=== PATIENT | male | born 1950 | race Caucasian/White ===

== ENCOUNTER 2020-01-05 10:34 | Outpatient (REF) | payer MEDICARE, MEDICAID, SELFPAY ==
[2020-01-05 11:54] LABS: MANUAL DIFF FLAG NO
[2020-01-05 12:04] LABS: Basophils Absolute Auto 0.1 X10*3/uL (0.0-0.2); Basophils Percent Auto 0.4 % (0-2); Eosinophils Absolute Auto 0.3 X10*3/uL (0.0-0.4); Eosinophils Percent Auto 1.3 % (0-4); Hematocrit 29.4 % (42-52); Hemoglobin 9.7 g/dl (14.0-18.0); Imm Gran Abs Auto 0.14 X10*3/uL (0.00-0.03); Imm Gran Pct Auto 0.7 % (0.0-0.4); Lymphocytes Percent Auto 10.4 % (20-40); Mean Corpuscular Hemoglobin 36.6 pg (27.0-33.0); Mean Platelet Volume 9.2 fL (9.4-12.4); Monocytes Percent Auto 5.2 % (2-11); Neutrophils Absolute Auto 16.1 X10*3/uL (2.0-8.3); Platelet Count 401 X10*3/uL (160-400); Red Blood Count 2.65 X10*6/uL (4.60-5.80); Red Cell Distribution Width 13.9 % (11.0-16.0); White Blood Count 19.7 X10*3/uL (4.8-10.8)
[2020-01-05 12:12] LABS: Mean Corpuscular Volume 110.9 fL (80-98)
[2020-01-05 12:16] LABS: Glucose Urine UA NEG (NEG); Leukocyte Esterase Urine 1+ (NEG); Nitrite Urine NEG (NEG); PH 6.5 (5.0-8.0); Specific Gravity - Urine 1.015 (1.005-1.025); Urine Blood 1+ (NEG); Urine Ketones NEG (NEG); Urine Protein 2+ MG/DL (NEG-TRACE)
[2020-01-05 12:24] LABS: Anion Gap 15 (12-20); Blood Urea Nitrogen 35 mg/dL (9-16); Calcium 8.5 mg/dL (8.4-10.2); Carbon Dioxide 21 mmol/L (22-29); Chloride 107 mmol/L (96-108); Estimated Glomerular Filt Rate 15; Magnesium 2.4 mg/dL (1.6-2.6); Phosphorus 4.8 mg/dL (2.7-4.5); Potassium 4.5 mmol/l (3.3-5.1); Sodium 138 mmol/L (135-145)
[2020-01-05 12:27] LABS: Appearance Urine HAZY; Color Urine YELLOW
[2020-01-05 12:45] LABS: Vitamin D 25-OH Total 25.7 ng/mL (>30)
[2020-01-05 13:02] LABS: Renal w Reflex-LAB USE ONLY Order Verified
[2020-01-05 13:03] LABS: Bacteria Urine TRACE /LPF; RBC Urine 0-2 /HPF (0); Squamous Epithelial Cell Urine 1+ /LPF
[2020-01-05 13:09] LABS: Renal w Reflex Lab Use Only Order verified
[2020-01-05 14:44] LABS: Creatinine Urine 39.46 mg/dL; Total Protein Urine Random 146 mg/dL (<12)
[2020-01-06 21:21] LABS: Calcium (PTHI) 8.7 mg/dL (8.6-10.3); PTHI 190 pg/mL (14-64)
== END 2020-01-05 10:35 | disposition home or self-care (01) ==
LOC: HO.LAB 10:34
PROVIDERS: PCP Family Medicine; Visit Provider Internal Medicine Nephrology
DX: R80.9 Proteinuria, unspecified (principal); I12.9 Hypertensive chronic kidney disease with stage 1 through stage 4 chronic kidney disease, or unspecified chronic kidney disease; N18.30 Chronic kidney disease, stage 3 unspecified
CPT/HCPCS: 36415; 80051; 81001; 81003; 82040; 82043; 82306; 82310; 82565; 83735; 83970; 84100; 84156; 84520; 85025; 87086

== ENCOUNTER 2020-03-16 09:25 | Outpatient (REF) | payer MEDICARE, MEDICAID, SELFPAY ==
[2020-03-16 10:18] LABS: MANUAL DIFF FLAG NO
[2020-03-16 10:22] LABS: Basophils Absolute Auto 0.1 X10*3/uL (0.0-0.2); Basophils Percent Auto 0.4 % (0-2); Eosinophils Absolute Auto 0.4 X10*3/uL (0.0-0.4); Eosinophils Percent Auto 3.3 % (0-4); Hematocrit 30.3 % (42-52); Hemoglobin 9.8 g/dl (14.0-18.0); Imm Gran Abs Auto 0.08 X10*3/uL (0.00-0.03); Imm Gran Pct Auto 0.7 % (0.0-0.4); Lymphocytes Absolute Auto 2.3 X10*3/uL (1.2-4.9); Lymphocytes Percent Auto 19.2 % (20-40); Mean Corpuscular HGB Conc 32.3 g/dl (31.0-36.0); Mean Corpuscular Hemoglobin 35.6 pg (27.0-33.0); Mean Platelet Volume 8.9 fL (9.4-12.4); Monocytes Absolute Auto 0.8 X10*3/uL (0.1-1.2); Monocytes Percent Auto 6.5 % (2-11); Neutrophils Absolute Auto 8.5 X10*3/uL (2.0-8.3); Neutrophils Percent Auto 69.9 % (45-73); Platelet Count 371 X10*3/uL (160-400); Red Blood Count 2.75 X10*6/uL (4.60-5.80); Red Cell Distribution Width 13.4 % (11.0-16.0); White Blood Count 12.1 X10*3/uL (4.8-10.8)
[2020-03-16 10:23] LABS: Mean Corpuscular Volume 110.2 fL (80-98)
[2020-03-16 10:36] LABS: Glucose Urine UA NEG (NEG); Leukocyte Esterase Urine 1+ (NEG); Nitrite Urine NEG (NEG); PH 7.5 (5.0-8.0); Urine Blood 1+ (NEG); Urine Ketones NEG (NEG); Urine Protein 2+ MG/DL (NEG-TRACE)
[2020-03-16 10:47] LABS: Appearance Urine HAZY; Color Urine STRAW
[2020-03-16 11:03] LABS: RBC Urine 0-2 /HPF (0); Squamous Epithelial Cell Urine TRACE /LPF
[2020-03-16 11:20] LABS: ~HepC Num1 5.45 S/CO (0.00-0.79); ~Hepatitis C Antibody Reactive (Nonreactive)
[2020-03-16 12:17] LABS: Estimated Glomerular Filt Rate 15
[2020-03-16 13:41] LABS: Alanine Aminotransferase 9 U/L (0-40); Albumin Level 4.1 g/dL (3.5-5.0); Alkaline Phosphatase 122 U/L (39-117); Anion Gap 13 (12-20); Aspartate Amino Transferase 13 U/L (5-37); Bilirubin Total 0.2 mg/dL (0.0-1.0); Blood Urea Nitrogen 36 mg/dL (9-16); Calcium 8.7 mg/dL (8.4-10.2); Carbon Dioxide 24 mmol/L (22-29); Chloride 104 mmol/L (96-108); Cholesterol 199 mg/dL; Glucose Random 90 mg/dL (60-115); HDL Cholesterol 69 mg/dL; LDL Cholesterol Calculated 118 mg/dl; Potassium 4.3 mmol/l (3.3-5.1); Sodium 137 mmol/L (135-145); Total Protein 7.7 g/dL (6.5-8.0); Triglycerides 64 mg/dL
[2020-03-17 04:11] LABS: Syphilis Screen Nonreactive (Nonreactive)
[2020-03-17 12:42] LABS: Absolute CD3 Count 1583 cells/uL (840-3060); Absolute CD4 Count 634 cells/uL (490-1740); Absolute CD8 Count 923 cells/uL (180-1170); Absolute Lymphocytes 2224 cells/uL (850-3900); CD4 CD8 Ratio 0.69 (0.86-5.00); Percent CD3 Cells 71 % (57-85); Percent CD4 Cells 29 % (30-61); Percent CD8 Cells 42 % (12-42)
[2020-03-18 07:03] LABS: C. trachomatis RNA TMA NOT DETECTED (NOT DETECTED); N. gonorrhoeae RNA TMA NOT DETECTED (NOT DETECTED)
[2020-03-18 11:43] LABS: HIV RNA PCR Qn Copies 72 copies/mL (NOT DETECTED); HIV RNA PCR Qn Log Copies 1.86 (NOT DETECTED)
[2020-05-12 12:00] LABS: HCV Log PCR <1.18 NOT DETECTED; HepC Viral Load <15 NOT DETECTED
== END 2020-03-16 09:26 | disposition home or self-care (01) ==
LOC: HO.LAB 09:25
PROVIDERS: Absent Provider Family Medicine; PCP Family Medicine; Visit Provider Internal Medicine Infectious Disease
DX: E78.5 Hyperlipidemia, unspecified (principal); B20 Human immunodeficiency virus [HIV] disease
CPT/HCPCS: 36415; 80053; 80061; 81001; 85025; 85060; 86359; 86360; 86481; 86780; 86803; 87491; 87522; 87536; 87591

== ENCOUNTER 2020-09-11 07:52 | Outpatient (REF) | payer MEDICARE, MEDICAID, SELFPAY ==
[2020-09-11 08:47] LABS: MANUAL DIFF FLAG NO
[2020-09-11 08:49] LABS: Basophils Absolute Auto 0.1 X10*3/uL (0.0-0.2); Basophils Percent Auto 0.6 % (0-2); Eosinophils Absolute Auto 0.5 X10*3/uL (0.0-0.4); Eosinophils Percent Auto 4.3 % (0-4); Hematocrit 31.2 % (42-52); Hemoglobin 10.2 g/dl (14.0-18.0); Imm Gran Abs Auto 0.07 X10*3/uL (0.00-0.03); Imm Gran Pct Auto 0.6 % (0.0-0.4); Lymphocytes Absolute Auto 2.7 X10*3/uL (1.2-4.9); Lymphocytes Percent Auto 21.7 % (20-40); Mean Corpuscular HGB Conc 32.7 g/dl (31.0-36.0); Mean Corpuscular Hemoglobin 37.5 pg (27.0-33.0); Mean Platelet Volume 9.1 fL (9.4-12.4); Monocytes Absolute Auto 0.9 X10*3/uL (0.1-1.2); Monocytes Percent Auto 7.3 % (2-11); Neutrophils Percent Auto 65.5 % (45-73); Platelet Count 339 X10*3/uL (160-400); Red Blood Count 2.72 X10*6/uL (4.60-5.80); Red Cell Distribution Width 14.5 % (11.0-16.0); White Blood Count 12.2 X10*3/uL (4.8-10.8)
[2020-09-11 08:51] LABS: Mean Corpuscular Volume 114.7 fL (80-98)
[2020-09-11 09:11] LABS: Amphetamine Screen Urine Not Detected (Not Detect); Barbiturates, Urine Not Detected (Not Detect); Benzodiazepines Screen Urine Not Detected (Not Detect); Cannabinoid Screen Urine Not Detected (Not Detect); Cocaine Screen Urine Not Detected (Not Detect); Opiate Screen Urine Not Detected (Not Detect); Phencyclidine Screen Urine Not Detected (Not Detect)
[2020-09-11 09:35] LABS: Alanine Aminotransferase 12 U/L (0-40); Albumin Level 4.3 g/dL (3.5-5.0); Alkaline Phosphatase 76 U/L (39-117); Anion Gap 18 (12-20); Aspartate Amino Transferase 13 U/L (5-37); Bilirubin Total 0.3 mg/dL (0.0-1.0); Blood Urea Nitrogen 40 mg/dL (9-16); Calcium 9.4 mg/dL (8.4-10.2); Carbon Dioxide 23 mmol/L (22-29); Chloride 104 mmol/L (96-108); Estimated Glomerular Filt Rate 15; Glucose Random 93 mg/dL (60-115); Potassium 5.1 mmol/L (3.3-5.1); Sodium 140 mmol/L (135-145); Total Protein 8.5 g/dL (6.5-8.0)
[2020-09-14 15:11] LABS: Absolute CD3 Count 1794 cells/uL (840-3060); Absolute CD4 Count 688 cells/uL (490-1740); Absolute CD8 Count 1059 cells/uL (180-1170); Absolute Lymphocytes 2552 cells/uL (850-3900); CD4 CD8 Ratio 0.65 (0.86-5.00); Percent CD3 Cells 70 % (57-85); Percent CD4 Cells 27 % (30-61); Percent CD8 Cells 41 % (12-42)
[2020-09-21 14:41] LABS: HIV RNA PCR Qn Copies 30 copies/mL (NOT DETECTED); HIV RNA PCR Qn Log Copies 1.48 (NOT DETECTED)
== END 2020-09-11 07:53 | disposition home or self-care (01) ==
LOC: HO.LAB 07:52
PROVIDERS: Absent Provider Family Medicine; PCP Family Medicine; Visit Provider Internal Medicine Infectious Disease
DX: B20 Human immunodeficiency virus [HIV] disease (principal); F11.90 Opioid use, unspecified, uncomplicated
CPT/HCPCS: 36415; 80053; 80307; 85025; 86359; 86360; 87536

== ENCOUNTER 2021-06-23 10:00 | Outpatient (REF) | payer MEDICARE, MEDICAID, SELFPAY ==
--- NOTE | ~2021-06-23 | US_ITS ---
EXAMINATION: US LOWER EXTREMITY VENOUS (REFLUX EXAM), BILATERAL CLINICAL INDICATION: This is a 70-year-old male with venous insufficiency and varicose veins. COMPARISON: None. TECHNIQUE: Color flow triplex imaging and compression Doppler was performed to evaluate both the deep and the superficial systems bilaterally. To evaluate the superficial system, the examination was performed in the upright position. Color-flow Doppler ultrasound and compression ultrasound were utilized. In addition, maneuvers were utilized to demonstrate reflux. FINDINGS: 1. DEEP VENOUS ULTRASOUND OF THE RIGHT LOWER EXTREMITY: Common Femoral Vein: Compressible, normal respiratory variation and augmented flow. Femoral vein: Compressible, normal color flow and augmentation. Popliteal Vein: Compressible, normal augmentation. Deep Reflux: There is no evidence of reflux in the deep system in either the common femoral vein or the popliteal vein. There is no evidence of a Burroughs's cyst. 2. SUPERFICIAL ULTRASOUND WITH DOPPLER OF RIGHT LOWER EXTREMITY: GREAT SAPHENOUS VEIN: Saphenofemoral Junction: 1.2 cm. There is no reflux. Mid Thigh: 0.4 cm Above Knee: 0.4 cm Below Knee: 0.3 cm. There is isolated reflux of 984 ms at this level. There is no reflux above or below this level. Mid Calf: 0.3 cm Ankle: 0.3 cm GSV REFLUX: There is only isolated reflux below the knee. DUPLICATED GREAT SAPHENOUS VEIN: None SMALL SAPHENOUS VEIN: Proximal: 0.4 cm Distal: 0.4 cm SSV REFLUX: No evidence of reflux. VEIN OF GIACOMINI: None Imaged. 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 There is a 0.2 cm proximal calf airline pilot flight instructor without reflux. VARICOSITIES: 0.3 cm mid thigh varicose vein without reflux. 3. DEEP VENOUS ULTRASOUND OF THE LEFT LOWER EXTREMITY: Common Femoral Vein: The vessels compressible but with reflux of 1276 ms. Femoral Vein: Compressible, normal color flow and augmentation. No reflux is seen in the femoral vein. Popliteal Vein: Compressible but with reflux of 2896 ms. Deep Reflux: There is no evidence of reflux in the deep system in either the common femoral vein or the popliteal vein. There is no evidence of a Burroughs's cyst. 4. SUPERFICIAL ULTRASOUND WITH DOPPLER OF LEFT LOWER EXTREMITY: GREAT SAPHENOUS VEIN: Saphenofemoral Junction: 1.0 cm Mid Thigh: 0.1 cm Above Knee: 0.1 cm Below Knee: 0.1 cm Mid Calf: 0.1 cm Ankle: 0.1 cm GSV REFLUX: No evidence of reflux. DUPLICATED GREAT SAPHENOUS VEIN: There is a 0.3 cm duplicated lateral great saphenous vein without reflux. SMALL SAPHENOUS VEIN: Proximal: 0.2 cm Distal: 0.1 cm SSV REFLUX: No evidence of reflux. VEIN OF GIACOMINI: None Imaged. PERFORATORS: There is a 0.1 cm proximal calf airline pilot flight instructor without reflux. VARICOSITIES: None Imaged US/US venous duplex LE BI IMPRESSION: 1. There are patent bilateral great saphenous veins and small saphenous veins without evidence of reflux. There is only isolated reflux in the right below-knee great saphenous vein in an isolated segment. 2. No varicose veins are seen on the left. 3. There are varicose veins measure 0.3 cm in the right mid thigh without reflux. 4. There is deep vein reflux seen in the left leg.
== END 2021-06-23 10:01 | disposition home or self-care (01) ==
LOC: HO.US 10:00
PROVIDERS: Visit Provider Family Medicine
DX: M79.604 Pain in right leg (principal); M79.89 Other specified soft tissue disorders
CPT/HCPCS: 93970

== ENCOUNTER 2021-09-15 20:50 | Emergency (ER) | payer MEDICARE, MEDICAID, SELFPAY ==
--- NOTE | 2021-09-15 | ECG_ITS ---
Test Reason : cp Blood Pressure : / mmHG Vent. Rate : 091 BPM Atrial Rate : 091 BPM P-R Int : 176 ms QRS Dur : 112 ms QT Int : 416 ms P-R-T Axes : 067 002 034 degrees QTc Int : 511 ms Normal sinus rhythm Possible Left atrial enlargement Inferior infarct (cited on or before 15-SEP-2021) Diffuse ST segment elevations Prolonged QT ACUTE CT / STEMI Abnormal ECG When compared with ECG of 15-SEP-2021 21:03, No significant changes seen Referred By: John Sapp Electronically Signed By:Davidson Yang
--- NOTE | ~2021-09-15 | XR_ITS ---
EXAMINATION: XR CHEST CLINICAL INFORMATION: SOB. COMPARISON: None TECHNIQUE: Frontal view of the chest was obtained. FINDINGS: Well-expanded lungs with patchy opacity seen in both lung bases. In addition there is diffuse prominent interstitial markings bilaterally. No pleural effusion seen. The heart size is enlarged. Pulmonary vascularity is normal. No gross bony abnormality seen. XR/XR chest 1V IMPRESSION: Bilateral patchy opacities in lung bases question chronic atelectasis/scarring. In addition there is increased interstitial markings in both lungs likely chronic scarring.
--- NOTE | 2021-09-15 20:59 | ECG_ITS ---
Test Reason : DIFFICULTY BREATHING Blood Pressure : / mmHG Vent. Rate : 093 BPM Atrial Rate : 093 BPM P-R Int : 164 ms QRS Dur : 104 ms QT Int : 404 ms P-R-T Axes : 074 004 035 degrees QTc Int : 502 ms Normal sinus rhythm Diffuse ST segment elevations Prolonged QT ACUTE MA / STEMI Abnormal ECG When compared with ECG of 17-MAR-2019 10:38, ST elevations present Referred By: John Sapp Electronically Signed By:Davidson Yang
[2021-09-15 21:00] VITALS: BP 173/65; PULSE 103; RESP 20; TEMP 37.1; O2SAT 89; BMI 27.6
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
[2021-09-15] MEDS: Heparin Sodium,Porcine 5,000 UNIT/ML VIAL 5000 UNIT IVPUSH (21:10)
[2021-09-15] MEDS: Ticagrelor 90 MG TABLET 180 MG PO (21:11)
[2021-09-15] MEDS: Aspirin 81 MG TAB.CHEW 324 MG PO (21:12)
[2021-09-15 21:19] LABS: Glucose, Whole Blood 113 mg/dL (60-115)
[2021-09-15 21:20] VITALS: BP 173/65; PULSE 101; RESP 20; TEMP 37.1
[2021-09-15 21:21] LABS: Basophils Percent Auto 0.1 % (0-2); Hematocrit 29.5 % (42.0-52.0); Hemoglobin 9.9 g/dl (14.0-18.0); Lymphocytes Absolute Auto 1.3 X10*3/uL (1.2-4.9); Lymphocytes Percent Auto 4.8 % (20-40); MANUAL DIFF FLAG SCAN; Mean Corpuscular HGB Conc 33.6 g/dl (31.0-36.0); Mean Corpuscular Volume 107.3 fL (80.0-98.0); Mean Platelet Volume 8.5 fL (9.4-12.4); Monocytes Absolute Auto 1.4 X10*3/uL (0.1-1.2); Monocytes Percent Auto 5.2 % (2-11); NRBC Pct Auto 0.2 /100WBC (0.0-0.2); Neutrophils Absolute Auto 22.9 x10*3/uL (2.0-8.3); Neutrophils Percent Auto 86.9 % (45-73); Platelet Count 381 X10*3/uL (160-400); Red Blood Count 2.75 X10*6/uL (4.60-5.80); Red Cell Distribution Width 15.2 % (11.0-16.0); SCAN SMEAR FLAG 1; White Blood Count 26.4 X10*3/uL (4.8-10.8)
[2021-09-15] MEDS: Nitroglycerin 0.4 MG TAB.SUBL SUBLINGUAL (21:25)
--- NOTE | 2021-09-15 21:34 | PC.NURSE ---
This RN attempt to call coreroom foundry laborer at [facility] to give report several times, pt already en route to facility.
[2021-09-15 21:38] LABS: SLIDE REVIEW VERIFIED
--- NOTE | 2021-09-15 21:39 | PC.NURSE ---
this RN called report to cathode builder.
[2021-09-15 21:43] LABS: VBG Base Excess -11.2 mmol/L; VBG HCO3 15 mmol/L (22-26); VBG pCO2 39 mmHg; VBG pH 7.21 (7.32-7.43); VBG pO2 35 mmHg
[2021-09-15 21:44] LABS: Venous Blood Gas Refer to POC result
[2021-09-15 21:47] LABS: COVID-19 Test Positive (Negative)
[2021-09-15 21:51] LABS: Alanine Aminotransferase 27 U/L (0-40); Albumin Level 3.4 g/dL (3.5-5.0); Alkaline Phosphatase 136 U/L (39-117); Anion Gap 23 (12-20); Aspartate Amino Transferase 70 U/L (5-37); Bilirubin Total 0.4 mg/dL (0.0-1.0); Blood Urea Nitrogen 70 mg/dL (9-16); Calcium 7.9 mg/dL (8.4-10.2); Carbon Dioxide 16 mmol/L (22-29); Chloride 100 mmol/L (96-108); Creatinine Clr Calc Pharmacy 8.9; Estimated Glomerular Filt Rate 6; Glucose Random 112 mg/dL (60-115); Potassium 4.1 mmol/L (3.3-5.1); Sodium 135 mmol/L (135-145); Total Protein 8.2 g/dL (6.5-8.0); Troponin-I High Sensitivity 141.7 ng/L (<3.5-35.0)
[2021-09-15 21:52] LABS: Lactic Acid 2.1 mmol/L (0.5-2.0)
[2021-09-15 22:14] LABS: INTERNATIONAL NORM RATIO 1.1 (0.9-1.1); Prothrombin Time 12.7 SEC (10.0-13.1)
[2021-09-15 22:17] LABS: D Dimer High Sensitivity 518 NG/ML; Partial Thromboplastin Time 30.8 SEC (24.1-38.0)
[2021-09-15 23:19] LABS: Reflex Lactate? Lactic Acid Added
== END 2021-09-15 22:06 | disposition short-term general hospital (02) ==
PROVIDERS: Emergency Provider Internal Medicine
DX: I21.29 ST elevation (STEMI) myocardial infarction involving other sites (principal); R06.02 Shortness of breath; I89.0 Lymphedema, not elsewhere classified; I25.10 Atherosclerotic heart disease of native coronary artery without angina pectoris; I10 Essential (primary) hypertension; Z79.899 Other long term (current) drug therapy; Z20.822 Contact with and (suspected) exposure to COVID-19
CPT/HCPCS: 36415; 71045; 80053; 82803; 82947; 83605; 84484; 85025; 85379; 85610; 85730; 87040; 87635; 93005; 96365; 96366; 99285